=== PATIENT | female | born 1990 | race Caucasian/White ===

== ENCOUNTER 2017-04-06 13:55 | Emergency (ER) | payer OTHER ==
[2017-04-06 14:22] VITALS: BP 115/68
--- NOTE | 2017-04-06 14:45 | ERNOTE ---
Headache ER HPI - General Presenting Symptoms: headache Time Seen by Provider: 04/06/17 14:29 Source: patient Exam Limitations: no limitations - Immun/Allergies/Home Medications Immunizations: IMMUNIZATION HX Immunizations Up to Date Yes History of Influenza Vaccine Yes Hx Pneumococcal Vaccination Yes Allergies/Adverse Reactions: Allergies No Known Allergies Allergy (Unverified 04/06/17 14:22) Home Medications: HOME MEDICATIONS Amoxicillin Trihydrate [Amoxil] 500 mg PO TID #30 cap 04/06/17 [Last Taken Unknown] Ibuprofen [Motrin] 600 mg PO Q6H PRN #40 tab 04/06/17 [Last Taken Unknown] - History of Present Illness Narrative: Patient has had left facial pain for about 3-4 weeks, tried over the counter medications without significant relieve. She has had a fractured tooth that she is scheduled to get pulled in May Quality: Present: achy, pressure Severity Maximum: Present: moderate Review of Systems - Review of Systems Constitutional: Absent: fever EYE: Absent: vision changes ENT: Present: nose congestion. Absent: ear pain, sore throat Respiratory: Present: cough - slight. Absent: shortness of breath Cardiology: Absent: chest pain Gastrointestinal/Abdominal: Absent: nausea, vomiting, abdominal pain Genitourinary: Present: no symptoms reported Musculoskeletal: Absent: neck pain Skin: Absent: rash Neurological: Present: See HPI, headache. Absent: weakness, numbness - Patient's Past Medical History Patient History - Medical: Headache Patient History - Cardiac/Respiratory: No pertinent hx Patient History - Cancer: No Hx of Cancer Patient History - Surgical Procedures: Patient History - Other: None LMP (females 10-50): nexplanon - Social History Living Situations: home Psych History: No pertinent hx Smoking Status: Light tobacco smoker Alcohol Use: none Drug Use: none - Immunizations Immunizations Up to Date: Yes Hx Pneumococcal Vaccination: Yes History of Influenza Vaccine: Yes Physical Exam - Physical Exam General Appearance: Present: wd/wn, alert, no apparent distress Head Exam: Present: normal inspection Eye Exam: Normal inspection: bilateral, PERRL: bilateral Ears, Nose, Throat: Present: normal except -, abnormal TM (R) - fluid, no erythema, nasal congestion, normal pharynx, other - no tooth or gum tenderness, multiple teeth with filling, few with decay. Absent: abnormal TM (L) Respiratory: Present: no respiratory distress, normal breath sounds, lungs clear Cardiovascular/Chest: Present: regular rate, rhythm, no murmur Neurological Exam: Present: alert, oriented, normal mood/affect Skin Exam: Present: normal color, warm/dry ED Progress - Vital Signs Patient's Vital Signs:: I have reviewed the patient's vital signs. Vital Signs: Vital Signs 04/06/17 14:06 Temperature 36.5 C Pulse Rate 56 L Respiratory 16 Rate Blood Pressure 115/68 O2 Sat by Pulse 100 Oximetry - Progress/Reassessment Chief Complaint: Headache Departure Clinical Impression: Sinus infection Qualifiers: Sinusitis location: maxillary Chronicity: acute Recurrence: not specified as recurrent Qualified Code(s): J01.00 - Acute maxillary sinusitis, unspecified - Departure Disposition: Home self-care Condition: Good Instructions: Sinusitis, Adult, [id number] Additional Instructions: use over the counter nasal sprays like nasonex or flonase Referrals: Seven Galdamez MD [Non Staff Physicians] - Prescriptions: Amoxicillin Trihydrate [Amoxil] 500 mg PO TID #30 cap Ibuprofen [Motrin] 600 mg PO Q6H PRN #40 tab PRN Reason: Pain
== END 2017-04-06 14:41 | disposition home or self-care (01) ==
LOC: ER 13:55
DX: J01.00 Acute maxillary sinusitis, unspecified (principal); F17.200 Nicotine dependence, unspecified, uncomplicated